=== PATIENT | female | born 1995 | race African-American/Black ===

== ENCOUNTER 2021-10-13 16:25 | Emergency (ER) | payer SELFPAY | END 2021-10-13 17:37 | disposition left against medical advice (07) | LOC: CSHERS 16:25 | DX: Z53.21 Procedure and treatment not carried out due to patient leaving prior to being seen by health care provider (principal) ==

== ENCOUNTER 2021-10-15 07:57 | Emergency (ER) | payer SELFPAY ==
[2021-10-15] MEDS ORDERED: Ondansetron ODT 4 MG TAB ONE (08:39)
== END 2021-10-15 08:45 | disposition home or self-care (01) ==
LOC: CSHERS 07:57
DX: J06.9 Acute upper respiratory infection, unspecified (principal); R11.0 Nausea
CPT/HCPCS: 99283; Q0162

== ENCOUNTER 2022-04-20 16:27 | Emergency (ER) | payer SELFPAY | END 2022-04-20 18:31 | disposition left against medical advice (07) | LOC: CSHERS 16:27 | DX: Z53.21 Procedure and treatment not carried out due to patient leaving prior to being seen by health care provider (principal) ==